=== PATIENT | male | born 1965 | race Two or more races ===

== ENCOUNTER 2019-05-10 13:51 | Outpatient (CLI) | payer OTHER ==
[2019-05-10 15:08] LABS: BASOPHILS # (AUTO) 0.05 x10^3/uL (0-0.1); BASOPHILS % (AUTO) 1 % (0-1); EOSINOPHILS # (AUTO) 0.07 x10^3/uL (0-0.4); EOSINOPHILS % (AUTO) 1 % (1-7); LYMPHOCYTES # (AUTO) 3.56 x10^3/uL (1-3.4); LYMPHOCYTES % (AUTO) 42 % (22-44); MD NO; MEAN CORPUSCULAR HEMOGLOBIN 29.6 pg (27.5-34.5); MEAN CORPUSCULAR HGB CONC 33.8 g/dL (33.2-36.2); MEAN CORPUSCULAR VOLUME 87.7 fL (81-97); MEAN PLATELET VOLUME 7.5 fL (7.4-10.4); MONOCYTES # (AUTO) 0.56 x10^3/uL (0.2-0.8); MONOCYTES % (AUTO) 7 % (2-9); NEUTROPHILS % (AUTO) 50 % (42-75); PLATELET COUNT 253 x10^3/uL (130-400); RED BLOOD COUNT 5.03 x10^6/uL (4.38-5.82); RED CELL DISTRIBUTION WIDTH 14.2 % (9.4-14.8)
[2019-05-10 15:16] LABS: ALANINE AMINOTRANSFERASE 32 U/L (12-78); ALBUMIN 3.6 g/dL (3.4-5.0); ANION GAP 6 mmol/L (5-15); CALCIUM 8.8 mg/dL (8.5-10.1); CHLORIDE 107 mmol/L (98-107); CREATININE 0.87 mg/dL (0.7-1.3)
[2019-05-10 15:19] LABS: ALKALINE PHOSPHATASE 81 U/L (45-117); BILIRUBIN,TOTAL 0.7 mg/dL (0.2-1.0); TOTAL PROTEIN 7.8 g/dL (6.4-8.2)
[2019-05-10 15:25] LABS: PROTHROMBIN TIME 10.6 Seconds (9.6-11.5)
[2019-05-12] MEDS ORDERED: MELO7.5T31 PO (08:26)
== END 2019-05-10 23:59 | disposition home or self-care (01) ==
LOC: STAR 13:51
PROVIDERS: ATTEND Orthopaedic Surgery
DX: Z01.818 Encounter for other preprocedural examination (principal); M16.11 Unilateral primary osteoarthritis, right hip
CPT/HCPCS: 36415; 80053; 83036; 85025; 85610; 85730; 87081; 87806; 93005; G0475

== ENCOUNTER 2019-05-15 07:38 | Observation (INO) | payer OTHER ==
[~2019-05-15] VITALS: Ht 170.2 cm; Wt 114.0 kg
[~2019-05-15 07:38] MED LIST: DEXAMETHASONE 4 MG/ML, 1ML IVPush ONE; FENTANYL PF 250 MCG/5ML ONE; MELO7.5T31 PO; MIDAZOLAM 1 MG/ML, 2ML ONE
[2019-05-15] MEDS ORDERED: LACTATED RINGERS 1,000 ML IV SCH (08:06)
[2019-05-15] MEDS ORDERED: LIDOCAINE-MPF 1%, 2ML ONE (08:10)
[2019-05-15] MEDS ORDERED: GABAPENTIN 300 MG CAPSULE PO ONE (08:30)
[2019-05-15] MEDS ORDERED: ACETAMINOPHEN 500 MG TABLET PO ONE (08:30)
[2019-05-15] MEDS ORDERED: LIDOCAINE-MPF 1%, 2ML INFIL ONE (08:30)
[2019-05-15] MEDS ORDERED: LIDOCAINE-MPF 2% ,5ML ONE (08:47)
[2019-05-15] MEDS ORDERED: PROPOFOL 10 MG/ML, 20ML ONE (08:47)
[2019-05-15] MEDS ORDERED: ROCURONIUM 10MG/ML,5ML ONE (08:47)
[2019-05-15] MEDS ORDERED: ONDANSETRON 2MG/ML, 2ML ONE (08:47)
[2019-05-15] MEDS ORDERED: DEXAMETHASONE 4 MG/ML, 1ML ONE ×2 (08:47)
[2019-05-15] MEDS ORDERED: CEFAZOLIN 1,000 MG ONE ×2 (08:47)
[2019-05-15] MEDS ORDERED: TRANEXAMIC ACID 100 MG/ML, 10ML ONE (09:23)
[2019-05-15] MEDS ORDERED: ROPIvacaine/PF 0.2%, 20 ML ONE (09:23)
[2019-05-15] MEDS ORDERED: SODIUM CHLORIDE 0.9% 50 ML ONE (09:23)
[2019-05-15] MEDS ORDERED: EPINEPHRINE 1 MG/ML, 1ML ONE (09:23)
[2019-05-15] MEDS ORDERED: KETOROLAC 60 MG/2 ML ONE (09:24)
[2019-05-15] MEDS ORDERED: ONDANSETRON 2MG/ML, 2ML IV PRN (10:00)
[2019-05-15] MEDS ORDERED: LORazepam 2 MG/ML, 1ML IVPush PRN (10:00)
[2019-05-15] MEDS ORDERED: OXYcodone 5 MG/5 ML ORAL.SOL UDC PO PRN (10:00)
[2019-05-15] MEDS ORDERED: EPHEDRINE 50 MG/ML, 1ML ONE (10:00)
[2019-05-15] MEDS ORDERED: NEOSTIGMINE 1 MG/ML, 10ML ONE (10:00)
[2019-05-15] MEDS ORDERED: GLYCOPYRROLATE 0.2MG/1ML, 5ML ONE (10:00)
[2019-05-15] MEDS ORDERED: MAGNESIUM HYDROXIDE 8%, 30ML UDC PO PRN (10:30)
[2019-05-15] MEDS ORDERED: POLYETHYLENE GLYCOL 17 GM PACKET PO PRN (10:30)
[2019-05-15] MEDS ORDERED: ONDANSETRON 2MG/ML, 2ML IVPush PRN (10:30)
[2019-05-15] MEDS ORDERED: HYDROmorphone 1 MG/ML, 1ML INJ IVPush PRN (10:30)
[2019-05-15] MEDS ORDERED: OXYcodone IR 5MG TABLET PO PRN (10:30)
[2019-05-15] MEDS ORDERED: DIPHENHYDRAMINE 50 MG/ML, 1ML IVPush PRN (10:30)
[2019-05-15] MEDS ORDERED: ACETAMINOPHEN 500 MG TABLET PO SCH (10:30)
[2019-05-15] MEDS ORDERED: TRANEXAMIC ACID 1,000 MG in SODIUM CHLORIDE 0.9% 100 ML IVPB ONE (10:30)
[2019-05-15] MEDS ORDERED: ONDANSETRON 4 MG TABLET PO PRN (10:30)
[2019-05-15] MEDS ORDERED: METOCLOPRAMIDE 5 MG/ML, 2ML IVPush PRN (10:30)
[2019-05-15] MEDS ORDERED: DIPHENHYDRAMINE 25 MG CAPSULE PO PRN (10:30)
[2019-05-15] MEDS ORDERED: PSYLLIUM PACKET PO PRN (10:30)
[2019-05-15] MEDS ORDERED: ALUMINUM/MAG/SIMETHICONE 30 ML UDC PO PRN (10:30)
[2019-05-15] MEDS ORDERED: SENNA/DOCUSATE TABLET PO PRN (10:30)
[2019-05-15] MEDS: FENTANYL PF 100 MCG/2ML IV PRN ×2 (11:52→11:57)
[2019-05-15] MEDS ORDERED: FENTANYL PF 100 MCG/2ML ONE (11:54)
[2019-05-15] MEDS ORDERED: OXYcodone 5 MG/5 ML ORAL.SOL UDC ONE (11:55)
[2019-05-15] MEDS ORDERED: HYDROmorphone 1 MG/ML, 1ML INJ ONE (12:08)
[2019-05-15] MEDS ORDERED: MEPERIDINE/PF 25MG/ML,1ML ONE (12:11)
[2019-05-15] MEDS: HYDROmorphone 2 MG/ML, 1ML IVPush PRN ×2 (12:12→12:37)
[2019-05-15] MEDS ORDERED: POTASSIUM CHLORIDE 20 MEQ in D5%-0.45% NACL 1,000 ML IV SCH (13:25)
[2019-05-15 15:00] VITALS: BP 124/72
[2019-05-15] MEDS ORDERED: CEFAZOLIN PMX 1GM/50ML 50 ML IVPB SCH (16:00)
[2019-05-15] MEDS ORDERED: KETOROLAC 30 MG/1 ML IV SCH (17:00)
[2019-05-15] MEDS ORDERED: ASPIRIN 81 MG TABLET EC PO SCH (18:00)
[2019-05-15] MEDS ORDERED: DOCUSATE 100 MG CAPSULE PO SCH (21:00)
[2019-05-16] MEDS ORDERED: DEXAMETHASONE 4 MG/ML, 1ML IVPush ONE (06:00)
[2019-05-16] MEDS ORDERED: TAMSULOSIN 0.4 MG CAP.ER.24H PO SCH (09:00)
== END 2019-05-15 16:45 | disposition home or self-care (01) ==
LOC: OR 07:38 → ORIP 10:02 → 4NE 13:07 → DCLOUNGE 16:37
PROVIDERS: ADMIT Orthopaedic Surgery; ATTEND Orthopaedic Surgery
DX: M87.851 Other osteonecrosis, right femur (principal); E66.9 Obesity, unspecified; M19.90 Unspecified osteoarthritis, unspecified site; Z79.899 Other long term (current) drug therapy
CPT/HCPCS: 27130; 36415; 72170; 86850; 86900; 96365; 97161; 97165; C1713; C1776; G0378; J0171; J0690; J1100; J1170; J1885; J2250; J2405; J2704; J2710; J2795; J3010; J3490; J7120